=== PATIENT | male | born 1955 | race African-American/Black ===

== ENCOUNTER 2017-11-07 10:26 | Emergency (ER) | payer OTHER ==
[2017-11-07 10:43] VITALS: BP 151/84; PULSE 70; TEMP 98.6; BMI 250.7
[2017-11-07] MEDS ORDERED: FLUORESCEIN NA 1 EA STRIP ONE (10:47)
--- NOTE | 2017-11-07 11:02 | PDOC ---
History of Present Illness - General Chief Complaint: Eye Problem Stated Complaint: EYE INJURY ON JOB Time Seen by Provider: 11/07/17 10:43 History Source: Patient Exam Limitations: No Limitations - History of Present Illness Initial Comments: 11/07/17 11:06 62 yr male states he was working 2 days ago and was mopping the floor and dirty water splashed into his right eye. pt has photphobia and pain. no vision changes. tetanus is UTD. Past History - Past Medical History Allergies/Adverse Reactions: Allergies Allergy/AdvReac Type Severity Reaction Status Date / Time No Known Allergies Allergy Verified 11/07/17 10:35 Home Medications: Ambulatory Orders NK [No Known Home Medication] 11/07/17 CVA: No COPD: No DVT: No Diabetes: Yes - Immunization History Immunization Up to Date: Yes - Suicide/Smoking/Psychosocial Hx Smoking History: Never smoked Information on smoking cessation initiated: No Hx Alcohol Use: No Drug/Substance Use Hx: No Substance Use Type: None Review of Systems - Review of Systems Able to Perform ROS?: Yes Is the patient limited Turkmen proficient: No HEENTM: Yes: Symptoms Reported *Physical Exam - Vital Signs Last Vital Signs Temp Pulse Resp BP Pulse Ox 98.6 F 70 18 151/84 100 11/07/17 10:36 11/07/17 10:36 11/07/17 10:36 11/07/17 10:36 11/07/17 10:36 - Physical Exam General Appearance: Yes: Nourished, Appropriately Dressed HEENT: positive: EOMI, DAVIE, Other (right eye with conjunctival erythema) Procedures - Eye Procedure Alcaine Drops Administered: Yes (2 drops ) Antibiotic Oinment/Drps Admin: right eye (erythromycin) Progress: 11/07/17 15:52 neg fluroscein stain neg uptake Medical Decision Making - Medical Decision Making 11/07/17 15:52 cc: right eye discomfort tearing, photophobia after getting dirty water splashed in eye 2 days ago neg vision change neg fb neg fluroscein stain will place erythromycin I spoke to office and set up follow up apt on sunday at 1030. Patient is aware and agrees with the plan. *DC/Admit/Observation/Transfer Diagnosis at time of Disposition: Eye injury Qualifiers: Encounter type: initial encounter Laterality: right Qualified Code(s): S05.91XA - Unspecified injury of right eye and orbit, initial encounter - Discharge Dispostion Disposition: HOME Condition at time of disposition: Good - Referrals Referrals: Hector Spencer MD [Staff Physician] - - Patient Instructions Additional Instructions: apply the eye ointment three times a day to lower lid wear protective sunglasses while outside follow with on Sunday at 1030 am at the address below - Post Discharge Activity Forms/Work/School Notes: Back to Work
== END 2017-11-07 11:26 | disposition home or self-care (01) ==
LOC: JER 10:26
DX: S05.8X1A Other injuries of right eye and orbit, initial encounter (principal); Y92.238 Other place in hospital as the place of occurrence of the external cause; Y99.0 Civilian activity done for income or pay; Y93.E5 Activity, floor mopping and cleaning
CPT/HCPCS: 99281-25